=== PATIENT | male | born 1940 | race Caucasian/White ===

== ENCOUNTER 2019-02-15 04:38 | Emergency (ER) | payer OTHER ==
[~2019-02-15] VITALS: Ht 175.3 cm; Wt 70.8 kg
[2019-02-15 04:40] VITALS: BP_SYST 193
--- NOTE | 2019-02-15 04:40 | NUR ---
Patient to ER bed 3 to gown for evaluation. Side rails up.
--- NOTE | 2019-02-15 04:41 | NUR ---
ER Dr. Duggan at bedside examining patient.
--- NOTE | 2019-02-15 04:42 | NUR ---
Pt BIB BLS ambulance C/O chills, nausea and abdominal pain since this morning. Pt states he woke up this morning with sudden onset of symptoms and tried ambulating with no relief. Pain is in the lower abd and is 5/10 pain. Pt denies any chest pain, SOB, urinary problems, or any other symptoms at this time. pt is ambulatory and walked to bed with no assistance. Pt is hypertensive and ER MD notified. Will continue to monitor.
[2019-02-15] MEDS ORDERED: NACL 0.9% 1,000 ML IV ONE (05:17)
[2019-02-15 05:31] LABS: BILIRUBIN,URINE NEGATIVE (NEGATIVE); CLARITY/URINE HAZY (CLEAR); COLOR,URINE YELLOW (YELLOW); GLUCOSE,URINE NEGATIVE (NEGATIVE); KETONES,URINE NEGATIVE (NEGATIVE); LEUKOCYTE ESTERASE ,URINE 2+ (NEGATIVE); NITRITE, URINE POSITIVE (NEGATIVE); PH,URINE 7.5 (5.0-8.0); PROTEIN URINE TRACE (NEGATIVE); UROBILINOGEN,URINE 0.2 (0.2-1.0)
[2019-02-15 05:32] LABS: BLOOD, URINE TRACE (NEGATIVE)
--- NOTE | 2019-02-15 05:33 | NUR ---
# 20 gauge angiocath placed to RT AC. Use of asceptic technique. Opsite placed over site. Blood return noted. Blood for lab drawn from site. Flushed with 10 cc of normal saline. No evidence of infiltration noted. Patient tolerated well.
[2019-02-15 05:36] LABS: BACTERIA,URINE MANY /HPF (None Seen); WBC,URINE 20-50 /HPF (0-3)
--- NOTE | 2019-02-15 05:40 | NUR ---
Patient transported to radiology via gurney, accompanied by rad staff.
[2019-02-15 05:50] LABS: HEMATOCRIT 35.9 % (36-54); HEMOGLOBIN 12.2 g/dL (14.0-18.0); LYMPHOCYTES % (AUTO) 17.5 % (20.5-51.5); MEAN CORPUSCULAR HEMOGLOBIN 36 pg (27-31); MEAN CORPUSCULAR HGB CONC 34 % (32-36); MEAN CORPUSCULAR VOLUME 105 fL (79.0-98.0); NEUTROPHILS % (AUTO) 69.1 % (40.0-70.0); PLATELET COUNT (AUTO) 245 K/uL (130-430); RED BLOOD CELL COUNT(AUTO) 3.41 MIL/uL (4.2-6.2); RED CELL DISTRIBUTION WIDTH 13.2 % (9.0-15.0); WHITE BLOOD COUNT (AUTO) 7.2 K/uL (4.8-10.8)
--- NOTE | 2019-02-15 05:50 | NUR ---
Pt returned from radiology in stable condition
[2019-02-15 05:51] LABS: BASOPHILS % (AUTO) 0.5 % (0.0-2.0); EOSINOPHILS # (AUTO) 0.1 K/uL (0.0-0.4); EOSINOPHILS % (AUTO) 1.3 % (0.0-4.0); LYMPHOCYTES # (AUTO) 1.3 K/uL (1.0-5.5); MONOCYTES # (AUTO) 0.8 K/uL (0.0-1.0); MONOCYTES % (AUTO) 1.6 % (1.7-9.3)
[2019-02-15 06:01] LABS: ANION GAP 8 (5-15); CALCIUM 9.1 mg/dL (8.4-11.0); CHLORIDE 106 mmol/L (98-107); GLUCOSE 89 mg/dL (70-99); POTASSIUM 4.2 mmol/L (3.5-5.1); SODIUM SERUM 141 mmol/L (136-145); UREA NITROGEN, BLOOD 29 mg/dL (8-21)
[2019-02-15 06:07] LABS: ALANINE AMINOTRANSFERASE 17 U/L (12-78); ALBUMIN 3.1 g/dL (3.4-4.8); ASPARTATE AMINOTRANSFERASE 22 U/L (10-37); LIPASE 130 U/L (73-393); TOTAL BILIRUBIN 0.5 mg/dL (0.0-1.0)
--- NOTE | 2019-02-15 06:30 | NUR ---
Pt denies any pain at this time, vitals are stable and blood pressure improved will continue to monitor.
--- NOTE | 2019-02-15 07:00 | NUR ---
Pt is resting in bed, no acute distress noted at this time. Will continue to monitor.
--- NOTE | 2019-02-15 07:05 | NUR ---
Pt is resting quietly in bed. Report given to Lois NEWMAN.
[2019-02-15] MEDS ORDERED: ONDANSETRON HCL 4 MG/2 ML VIAL IVP ONE (07:15)
[2019-02-15] MEDS ORDERED: cefTRIAXone 1 GM IVPB PREMIX 50 ML IV ONE (07:15)
--- NOTE | 2019-02-15 09:05 | NUR ---
João, Patients' called, spoke with Cindy NEWMAN: stated she is on her way to ER to pick-up patient.
--- NOTE | 2019-02-15 09:25 | NUR ---
Patients at bedside, brought patient clothes. Patient alert and appropriate
[2019-02-15 09:52] VITALS: BP_SYST 163
--- NOTE | 2019-02-15 09:52 | NUR ---
Patient given written and verbal discharge instructions and verbalizes understanding. ER MD discussed with patient the results and treatment provided. Patient in stable condition. ID arm band removed. Rx of Ibuprofen, Levaquin, reglan given. Patient educated on pain management and to follow up with PMD. Pain Scale 0/10. Opportunity for questions provided and answered. Medication side effect fact sheet provided.
== END 2019-02-15 09:52 | disposition home or self-care (01) ==
LOC: SED 04:38
DX: N39.0 Urinary tract infection, site not specified (principal); R10.30 Lower abdominal pain, unspecified; C34.90 Malignant neoplasm of unspecified part of unspecified bronchus or lung; C67.9 Malignant neoplasm of bladder, unspecified; I10 Essential (primary) hypertension; Z93.2 Ileostomy status
CPT/HCPCS: 36415; 74176; 80053; 81000; 83605; 83690; 85025; 86710; 87040; 87086; 96365; 96375; 99284; J0696; J2405; J7030